=== PATIENT | female | born 1960 ===

== ENCOUNTER 2019-03-22 01:05 | Emergency (ER) | payer SELFPAY ==
[2019-03-22] MEDS ORDERED: GABA-531 PO (01:17)
[2019-03-22 01:32] VITALS: BP 150/114
== END 2019-03-22 02:58 | disposition left against medical advice (07) ==
LOC: EMS 01:05
DX: M54.5 Low back pain (principal); Z53.21 Procedure and treatment not carried out due to patient leaving prior to being seen by health care provider